=== PATIENT | male | born 1960 | race Caucasian/White ===

== ENCOUNTER 2016-08-25 18:55 | Inpatient (IN) | payer BC, MEDICARE ==
[2016-08-25 19:21] VITALS: BMI 35.6
[2016-08-25] MEDS ORDERED: SODIUM CHLORIDE 0.9% 3 ML FLUSH FLUSH PRN ×2 (19:46→22:29)
[2016-08-25] MEDS ORDERED: NS 1,000 ML IV ONE ×3 (19:46→22:29)
[2016-08-25] MEDS ORDERED: ONDANSETRON HCL 4 MG/2 ML VIAL IV ONE (19:46)
[2016-08-25] MEDS ORDERED: MORPHINE 4 MG/ML INJECTION IV ONE (19:46)
--- NOTE | 2016-08-25 19:49 | EDPRACDOC ---
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 PT STATES HAS H /O CELLULITIS, IS A DIABETIC AND HAS HAD MRSA IN THE PAST. HAS ALSO HAD MULTIPLE SURGERIES ON LEFT FOOT. Foot Problem Location: Reports: Left, Lateral, Medial Mechanism: Reports: Unknown Circumstances: Reports: Unknown Able to Bear Weight: Limited Pain Severity: Reports: Moderate Associated Signs & Symptoms: Reports: Swelling (REDNESS AND WARMTH OF LEFT FOOT) <Daquan Chaves - Last Filed: 08/25/16 22:29> - General Information Chief Complaint: Foot Pain Stated Complaint: LEFT FOOT SWELLING Time Seen by Provider: 08/25/16 19:38 Home Medications: Home Medications Diltiazem HCl [Cardizem Cd] 360 mg PO DAILY 09/25/12 Duloxetine HCl [Cymbalta] 60 mg PO DAILY 09/25/12 Ergocalciferol (Vitamin D2) [Vitamin D] 50,000 unit PO .WEEKLY ON Sunday Gabapentin [Neurontin] 800 mg PO BID 09/25/12 Hydroxychloroquine Sulfate [Plaquenil] 200 mg PO BID 09/25/12 Leflunomide [Arava] 20 mg PO DAILY 09/25/12 Montelukast Sodium [Singulair] 10 mg PO HS 09/25/12 Olopatadine HCl [Patanol 0.1% Ophthalmic Solution] 1 drop OU BID 09/25/12 Prednisone 10 mg PO DAILY 09/25/12 Zolpidem Tartrate [Ambien Cr] 12.5 mg PO HS 09/25/12 Finasteride [Proscar] 5 mg PO DAILY 01/12/14 Potassium Chloride [Klor-Con M20] 20 meq PO DAILY 01/12/14 Ranitidine HCl [Zantac] 300 mg PO DAILY 01/12/14 Tamsulosin HCl [Flomax] 0.4 mg PO BID 01/12/14 Tapentadol HCl [Nucynta ER] 250 mg PO BID 01/12/14 Bupropion HCl [Bupropion HCl Sr] 300 mg PO DAILY 12/24/14 Ezetimibe [Zetia] 10 mg PO DAILY 12/24/14 CloNIDine (Antihypertensive) [Catapres] 0.3 mg PO BID 02/06/16 Esomeprazole Mag Trihydrate [Nexium] 40 mg PO DAILY 02/06/16 Furosemide [Lasix] 40 mg PO DAILY 02/06/16 HydrALAZINE (Cardiovascular) [Apresoline] 50 mg PO TID 02/06/16 Rivaroxaban [Xarelto] 20 mg PO DAILY 02/06/16 Telmisartan [Micardis] 80 mg PO DAILY 02/06/16 Albuterol Sulfate [Proair Hfa] 2 puff INH Q4-6H PRN 03/07/16 Olopatadine HCl [Patanol] 1 drop OU BID 03/07/16 Cephalexin Monohydrate [Keflex] 500 mg PO Q8H #21 cap 03/11/16 Lactobacillus Acidophilus [Florajen] 460 mg PO BID #120 capsule 03/11/16 Moxifloxacin HCl [Avelox] 400 mg PO DAILY #7 tablet 03/11/16 Allergies/Adverse Reactions: Allergies Allergy/AdvReac Type Severity Reaction Status Date / Time Penicillins Allergy Unknown/See Verified 02/06/16 18:29 Comments ED Past Medical History - History Reviewed Yes Nurses notes reviewed and agree except as marked Travel Outside of [place] in the Last 3 Months?: No - Patient Medical History Cardiac History: Reports: Hypertension, Hypercholesterolemia Respiratory History: Reports: Asthma, COPD, Pulmonary Embolism (Currently taking Xarelto) GI/ History: Reports: Renal Disease, Gastroesophageal Reflux, Diverticulosis. Denies: Ulcer, Pancreatitis Musculoskeletal History: Reports: Gout, Rheumatoid Arthritis, Osteoarthritis Psychological History: Reports: Depression, Anxiety. Denies: Substance Use Disorder Systemic History: Reports: Anemia, Diabetes Surgical History: Reports: Cholecystectomy, Other (Right knee arthroscopic surgery.left foot x 2). Denies: Hernia Surgery, Tonsillectomy/Adnoidectomy - Family Medical History Reports: Hypertension, Diabetes, Stroke, Cardiac Disorders. Denies: Cancer - Social Medical History Smoking Status: Never smoker Social History: Denies: Substance Use Disorder ETOH: None Substance Abuse: None Lives With: Spouse Lives In: Home <Daquan Chaves - Last Filed: 08/25/16 22:29> EDM Review of Systems - Review of Systems ROS Negative Except as Marked: Yes All systems reviewed and were negative except as marked Constitutional: Fever (LOW GRADE HERE). negative: Chills, Fatigue, Loss of Appetite, Weakness Eyes: No Symptoms Reported. negative: Redness, Blurred Vision, Double Vision, Discharge, Pain, Light Sensitive, Photophobia Ears: No Symptoms Reported. negative: Pain, Hearing Loss, Drainage, Ear Pulling Throat: No Symptoms Reported. negative: Pain, Swelling Nose: No Symptoms Reported. negative: Congestion, Bleeding, Discharge, Injection, Swelling, Deformity, Ecchymosis, Tender, Abrasion, Laceration Mouth: No Symptoms Reported. negative: Pain, Drooling Respiratory: No Symptoms Reported. negative: Cough, Brassy Cough, Barky Cough, Shortness of Breath, Wheezing, Hemoptysis Cardiovascular: No Symptoms Reported. negative: Chest Pain, Palpitations, Syncope, Edema, Orthopnea, PND, Skin Mottling, Cyanosis Gastrointestinal: No Symptoms Reported. negative: Pain, Constipation, Nausea, Vomiting, Diarrhea, Melena, Formula Intolerance Genitourinary: No Symptoms Reported. negative: Dysuria, Hematuria, Frequency, Discharge, Bleeding, Testicular Pain, Neurological: No Symptoms Reported. negative: Headache, Dizziness, Seizure, Numbness, Weakness, Speech Difficulty, Gait Difficulty Musculoskeletal: No Symptoms Reported. negative: Neck, Chestwall, Ribs, Back, Shoulder, Arm, Elbow, Forearm, Wrist, Hand, Pelvis, Hip, Femur, Knee, Leg, Ankle , Foot Integumentary: Other (REDNESS SWELLING OF LEFT FOOT WITH WARMTH FOR SEVERAL DAYS.). negative: Bruising, Itching, Rash, Wound Allergic/Immunologic: No Symptoms Reported. negative: Hives, Itching Hematologic: No Symptoms Reported. negative: Lymphadenopathy, Easy Bruising, Easy Bleeding Endocrine: No Symptoms Reported. negative: Weight Gain, Weight Loss Psychiatric: No Symptoms Reported. negative: Anxiety, Depression, Hallucinations, Insomnia, Suicidal <Daquan Chaves - Last Filed: 08/25/16 22:29> - Physical Exam Last recorded Vital Signs: Last Vital Signs Temp 99.5 F 08/25/16 19:17 Pulse 88 08/25/16 21:37 Resp 22 08/25/16 21:37 BP 124/68 08/25/16 21:37 Pulse Ox 94 08/25/16 21:37 Oxygen Pulse Oxygen Saturation 94 O2 Device Room Air Oxygen Flow Rate Fraction of Inspired Oxygen ( FIO2) <Edda Mccann Joni - Last Filed: 08/25/16 22:18> - Physical Exam Constitutional: Alert (Awake), No apparent distress Oriented to: Time, Person, Place Last recorded Vital Signs: Last Vital Signs Temp 99.5 F 08/25/16 19:17 Pulse 96 08/25/16 19:42 Resp 24 08/25/16 19:42 BP 114/64 08/25/16 19:42 Pulse Ox 92 08/25/16 19:42 Oxygen Pulse Oxygen Saturation 92 O2 Device Room Air Oxygen Flow Rate Fraction of Inspired Oxygen ( FIO2) - HEENT Head: Normal ( normocephalic) Eye Exam: Normal (PERRL, EOMI, Sclera white) Oropharynx: Normal (Pharynx:Moist without exudate,Gums-no swelling) Tympanic Membrane: Normal ENT EAC: Normal TMJ: Normal Nose: No Symptoms Reported (septum midline) Neck: Normal (FROM, trachea at midline) - Respiratory/Cardiovascular Respiratory: Normal - CTA (BBS clear to auscultation without adventitious sounds ) Cardiovascular: Normal (RRR without murmur, gallop or rub) - GI Auscultation: Normal (NABS) Palpation: Normal (Soft,No rebound or guarding, non distended) Tenderness: Non tender Franco's Sign: Negative - Musculoskeletal Back: Normal (Non-Tender) Extremities: Normal (Normal tone, Pulses 2+ No cyanosis or edema, FROM) - Integumentary Skin: Normal, Warm, Dry Lymphatics: Normal (no adenopathy) - Neurologic Memory Impaired: Normal Motor Function: Normal (Normal tone, Pulses 2+ No cyanosis or edema, FROM) Cranial Nerve: Normal (CN II-X11 intact sensation, strength 5/5) Cerebellar: Normal Mood Description: Normal Perception: Normal <Daquan Chaves - Last Filed: 08/25/16 22:29> ED Foot Problem Phys Exam - Musculoskeletal Foot: Swelling (REDNESS AND WARMTH TO LEFT MEDIAL AND LATERAL FOOT, MULTIPLE SURGICAL SCARS TO FOOT, ALSO AREA OF CONCERN TO LATERAL FOOT APPEARS TO BE POCKET OF PUS.) Ankle: Swelling (REDNESS AND WARMTH) Achilles Tendon: Normal Nail: Normal Nailbed: Normal Soft Tissue: Tender, Red, Swelling, Other (WARMTH) Digit: Normal Digit Strength: Normal Distal Function/Circulation: Normal - Integumentary Skin: Swelling, Red, Warm, Erythema Lymphatics: Normal <Daquan Chaves - Last Filed: 08/25/16 22:29> - Results 08/25/16 20:07 08/25/16 20:07 WBC 12.4 xk/uL (3.8-10.8) H 08/25/16 20:07 RBC 4.57 xM/uL (4.70-6.10) L 08/25/16 20:07 Hgb 11.0 g/dL (14.0-18.0) L 08/25/16 20:07 Hct 34.4 % (42-52) L 08/25/16 20:07 MCV 75 fL (80-94) L 08/25/16 20:07 MCH 24.1 pg (27-32) L 08/25/16 20:07 MCHC 32.1 g/dl (33-36) L 08/25/16 20:07 RDW 18.0 % (11.5-14.5) H 08/25/16 20:07 Plt Count 190 xk/uL (130-400) 08/25/16 20:07 MPV 8.7 fL (7.4-10.4) 08/25/16 20:07 Neut % (Auto) 71.7 % (45-76) 08/25/16 20:07 Lymph % (Auto) 9.0 % (17-44) L 08/25/16 20:07 Bledsoe % (Auto) 17.9 % (3-10) H 08/25/16 20:07 Eos % (Auto) 0.4 % (0-5) 08/25/16 20:07 Baso % (Auto) 1.0 % (0-2) 08/25/16 20:07 Absolute Neuts (auto) 8.80 xk/uL (1.7-8.2) H 08/25/16 20:07 Absolute Lymphs (auto) 1.12 xk/uL (0.65-4.75) 08/25/16 20:07 PT 12.6 SEC (9.2-11.2) H 08/25/16 20:07 INR 1.2 08/25/16 20:07 APTT 29.4 SEC (22-35) 08/25/16 20:07 Sodium 132 mEq/L (137-146) L 08/25/16 20:07 Potassium 4.0 mEq/L (3.5-5.1) 08/25/16 20:07 Chloride 96 mEq/L (98-107) L 08/25/16 20:07 Carbon Dioxide 22 mMOL/L (22-33) 08/25/16 20:07 Anion Gap 18 mEq/L (8-16) H 08/25/16 20:07 BUN 19 MG/DL (9-20) 08/25/16 20:07 Creatinine 2.30 MG/DL (0.66-1.25) H 08/25/16 20:07 Estimated GFR (MDRD) 30 mL/min (>=60) L 08/25/16 20:07 Glucose 86 MG/DL (70-99) 08/25/16 20:07 Calculated Osmolality 256 MOs/Kg (270-290) L 08/25/16 20:07 Calcium 9.1 MG/DL (8.4-10.2) 08/25/16 20:07 Corrected Calcium 9.2 MG/DL (8.4-10.2) 08/25/16 20:07 Total Bilirubin 1.0 MG/DL (0.2-1.3) 08/25/16 20:07 AST 60 IU/L (17-59) H 08/25/16 20:07 ALT 79 IU/L (21-72) H 08/25/16 20:07 Alkaline Phosphatase 99 IU/L (38-126) 08/25/16 20:07 Troponin I 0.04 ng/mL (<.04) 08/25/16 20:07 Total Protein 7.3 G/DL (6.3-8.2) 08/25/16 20:07 Albumin 3.9 G/DL (3.5-5.0) 08/25/16 20:07 Lab Results 08/25/16 08/25/16 08/25/16 20:07 20:07 20:07 WBC 12.4 H RBC 4.57 L Hgb 11.0 L Hct 34.4 L MCV 75 L MCH 24.1 L MCHC 32.1 L RDW 18.0 H Plt Count 190 MPV 8.7 Neut % (Auto) 71.7 Lymph % (Auto) 9.0 L Bledsoe % (Auto) 17.9 H Eos % (Auto) 0.4 Baso % (Auto) 1.0 Absolute Neuts (auto) 8.80 H Absolute Lymphs (auto) 1.12 PT 12.6 H INR 1.2 APTT 29.4 Sodium 132 L Potassium 4.0 Chloride 96 L Carbon Dioxide 22 Anion Gap 18 H BUN 19 Creatinine 2.30 H Estimated GFR (MDRD) 30 L Glucose 86 Calculated Osmolality 256 L Calcium 9.1 Corrected Calcium 9.2 Total Bilirubin 1.0 AST 60 H ALT 79 H Alkaline Phosphatase 99 Troponin I 0.04 Total Protein 7.3 Albumin 3.9 - Additional Information NO HARDWARE REMAINING. ONE ABSCESS DRAINED IN ED. PT NONTOXIC CURRENTLY, BUT IS IMMUNOCOMPROMISED WITH DMARD AND PRED. <Edda Mccann - Last Filed: 08/25/16 22:18> - Differential Diagnosis Contusion, Metatarsal Fracture, Other (CELLULITIS, OSTEOMYELITIS) - Results 08/25/16 20:07 08/25/16 20:07 <Daquan Chaves - Last Filed: 08/25/16 22:29> - Departure Yes I personally saw and evaluated the patient. Disposition: Admit IP To This Hospital Decision to Admit Time: 22:19 Decision to admit date: 08/25/16 Decision to admit: from ED - Physician Consulted Hospitalist Time Called: 22:19 Provider Called: Agnes Benites Time Retort Engineer Returned Call: 22:19 Orthopedics Time Called: 22:00 Provider Called: Sami Harding Time Retort Engineer Returned Call: 22:00 (NO ID OR NEPHROLOGY AT [facility], REC TRANSFER. FOOT SURG HANDLED BY [facility], CALL THEM) Surgery Time Called: 22:10 Provider Called: Red Schaefer Time Retort Engineer Returned Call: 22:10 (SINCE NO REMAINING HARDWARE, HE CAN DO DEBRIDEMENT IF NECESSARY) <Edda Mccann - Last Filed: 08/25/16 22:18> - Departure Education/Counseling Given To: Patient Education/Counseling Given Regarding: Diagnosis, Treatment, Prognosis, Follow Up <Daquan Chaves - Last Filed: 08/25/16 22:29> - Departure Final Diagnosis: Cellulitis of left foot, Acute renal insufficiency Instructions: RICE: Routine Care for Injuries Referrals: Arlet Cardoso MD [Primary Care Provider] - As Needed
[2016-08-25] MEDS ORDERED: Pharmacy Review for Metformin - IV Contrast Given SCH (20:00)
--- NOTE | 2016-08-25 20:01 | DIRPT ---
CLINICAL DATA: History of hypertension, foot cellulitis EXAM: PORTABLE CHEST 1 VIEW COMPARISON: 03/07/2016 FINDINGS: Stable mild cardiac enlargement. Vascular pattern normal. Minimal atelectasis right lower lobe. IMPRESSION: No significant acute findings Electronically Signed By: Martin Saldivar M.D. On: 08/25/2016 19:59
[2016-08-25 20:17] LABS: AUTOMATED EOSINOPHIL 0.4 % (0-5); AUTOMATED MONOCYTE 17.9 % (3-10); AUTOMATED NEUTROPHIL 71.7 % (45-76); MPV 8.7 fL (7.4-10.4)
[2016-08-25 20:29] LABS: BLOOD UREA NITROGEN 19 MG/DL (9-20); CALC CORRECTED 9.2 MG/DL (8.4-10.2); CALCIUM 9.1 MG/DL (8.4-10.2); CALCULATED OSMOLALITY 256 MOs/Kg (270-290); CHLORIDE 96 mEq/L (98-107); GLUCOSE 86 MG/DL (70-99); SODIUM LEVEL 132 mEq/L (137-146); TOTAL PROTEIN 7.3 G/DL (6.3-8.2)
[2016-08-25 20:30] LABS: PARTIAL THROMB. TIME 29.4 SEC (22-35); PT-INR 1.2
[2016-08-25] MEDS ORDERED: LIDOCAINE 2% 5 ML (PRESERVATIVE FREE) VIAL INF ONE (20:56)
--- NOTE | 2016-08-25 21:54 | DIRPT ---
CLINICAL DATA: Redness swelling warmth to left foot for 4 days with fever and elevated white blood count, history of multiple left foot surgeries EXAM: CT OF THE LOWER LEFT EXTREMITY WITHOUT CONTRAST TECHNIQUE: Multidetector CT imaging of the left lower extremity from ankle through forefoot was performed according to the standard protocol. COMPARISON: 02/06/2016 FINDINGS: Significant skin thickening circumferentially around the ankle and along the dorsal surface of the hindfoot, midfoot, and extending to a lesser degree into the forefoot. Multiple leg instrumentation through the calcaneus, navicular, cuboid, cuneiforms, and metatarsal. There is apparent fusion of the talonavicular joint. There is corticated chronic appearing erosive change between the navicular and the cuneiform bones. Articulation between the first cuneiform and first metatarsal appears to be fused. There is no periosteal reaction or cortical destruction to specifically indicate osteomyelitis. An acute fracture is not visible. Adjacent to the base of the fifth metatarsal, just proximal to the bulb, there is a 17 mm fluid collection center containing at least 2 loculations with thin enhancement of the rim and internal septation. There is a small ankle joint effusion of unknown sterility. IMPRESSION: Findings suggest diffuse cellulitis with small soft tissue abscess as described. Small ankle joint effusion of unknown sterility Electronically Signed By: Martin Saldivar M.D. On: 08/25/2016 21:51
[2016-08-25 22:27] LABS: LEUKOCYTES/URINE NEG (NEGATIVE); NITRITE/URINE NEG (NEGATIVE); URINE OCCULT BLOOD NEG (NEG/TRACE)
[2016-08-25] MEDS ORDERED: BENZONATATE 100 MG PERLES PO PRN (22:29)
[2016-08-25] MEDS ORDERED: TEMAZEPAM 15 MG CAP PO PRN (22:29)
[2016-08-25] MEDS ORDERED: ACETAMINOPHEN 650 MG SUPP PR PRN (22:29)
[2016-08-25] MEDS ORDERED: ACETAMINOPHEN 325 MG/TAB TABLET PO PRN (22:29)
[2016-08-25] MEDS ORDERED: SIMETHICONE 80 MG TAB PO PRN (22:29)
[2016-08-25] MEDS ORDERED: ONDANSETRON HCL 4 MG/2 ML VIAL IV PRN (22:29)
[2016-08-25] MEDS ORDERED: METOCLOPRAMIDE 10 MG/2 ML VIAL IV PRN (22:29)
[2016-08-25] MEDS ORDERED: DOCUSATE-SENNA CONCENTRATE TAB PO PRN (22:29)
[2016-08-25] MEDS ORDERED: OLOPATADINE HCL OU SCH (22:45)
--- NOTE | 2016-08-25 22:48 | HISTPHYS ---
- Chief Complaint infected wound on foot - History of Present Illness Mr. Clarence Cardoso is a 55 year old man with a history of rheumatoid arthritis, diabetes and hypertensive heart disease who states that about 3-4 days ago his left foot began swelling and turning red. He has had reconstructive surgery in this foot in the past, but all the metal hardware has already been removed. He did have an abscess but that was drained in the ED. There does not appear to be any underlying osteomyelitis at this time. The patient has either progressive renal failure from his diabetes or acute renal failure from his acute illness, because his creatinine has risen from his former baseline of 1.0 to 2.3. His BUN remains normal. We will admit the patient for treatment of his acute renal failure and his cellulitis. - Medical History Cardiac History: Reports: Hypertension, Congestive Heart Failure, Hypercholesterolemia Respiratory History: Reports: Asthma, COPD, Pulmonary Embolism (Currently taking Xarelto) GI/ History: Reports: Renal Disease, Gastroesophageal Reflux, Diverticulosis. Denies: Ulcer, Pancreatitis Musculoskeletal History: Reports: Gout, Rheumatoid Arthritis, Osteoarthritis Systemic History: Reports: Anemia, Diabetes Neurological History: Reports: Other (neuropathy) Psychological History: Reports: Depression, Anxiety. Denies: Substance Use Disorder - Surgical History Reports: Cholecystectomy, Other (Right knee arthroscopic surgery, left foot reconstructive surg x 2). Denies: Hernia Surgery, Tonsillectomy/Adnoidectomy - Medictions/Allergies Allergies Penicillins Allergy (Verified 02/06/16 18:29) Unknown/See Comments was told to avoid Home Medications Diltiazem HCl [Cardizem Cd] 360 mg PO DAILY 09/25/12 Duloxetine HCl [Cymbalta] 60 mg PO DAILY 09/25/12 Ergocalciferol (Vitamin D2) [Vitamin D] 50,000 unit PO .WEEKLY ON Sunday Gabapentin [Neurontin] 800 mg PO BID 09/25/12 Hydroxychloroquine Sulfate [Plaquenil] 200 mg PO BID 09/25/12 Leflunomide [Arava] 20 mg PO DAILY 09/25/12 Montelukast Sodium [Singulair] 10 mg PO HS 09/25/12 Olopatadine HCl [Patanol 0.1% Ophthalmic Solution] 1 drop OU BID 09/25/12 Prednisone 10 mg PO DAILY 09/25/12 Zolpidem Tartrate [Ambien Cr] 12.5 mg PO HS 09/25/12 Finasteride [Proscar] 5 mg PO DAILY 01/12/14 Potassium Chloride [Klor-Con M20] 20 meq PO DAILY 01/12/14 Ranitidine HCl [Zantac] 300 mg PO DAILY 01/12/14 Tamsulosin HCl [Flomax] 0.4 mg PO BID 01/12/14 Tapentadol HCl [Nucynta ER] 250 mg PO BID 01/12/14 Bupropion HCl [Bupropion HCl Sr] 300 mg PO DAILY 12/24/14 Ezetimibe [Zetia] 10 mg PO DAILY 12/24/14 CloNIDine (Antihypertensive) [Catapres] 0.3 mg PO BID 02/06/16 Esomeprazole Mag Trihydrate [Nexium] 40 mg PO DAILY 02/06/16 Furosemide [Lasix] 40 mg PO DAILY 02/06/16 HydrALAZINE (Cardiovascular) [Apresoline] 50 mg PO TID 02/06/16 Rivaroxaban [Xarelto] 20 mg PO DAILY 02/06/16 Telmisartan [Micardis] 80 mg PO DAILY 02/06/16 Albuterol Sulfate [Proair Hfa] 2 puff INH Q4-6H PRN 03/07/16 Olopatadine HCl [Patanol] 1 drop OU BID 03/07/16 Cephalexin Monohydrate [Keflex] 500 mg PO Q8H #21 cap 03/11/16 Lactobacillus Acidophilus [Florajen] 460 mg PO BID #120 capsule 03/11/16 Moxifloxacin HCl [Avelox] 400 mg PO DAILY #7 tablet 03/11/16 - Family History Reports: Hypertension, Diabetes, Stroke, Cardiac Disorders. Denies: Cancer - Social History Travel Outside of [place] in the Last 3 Months?: No Lives: with Spouse Smoking Status: Never smoker Social History: Denies: Alcohol Use, Substance Use Disorder - Review of Systems Constitutional: Chills, Weakness. negative: Fever Eyes: No Symptoms Reported Ears: No Symptoms Reported Nose: No Symptoms Reported Mouth: No Symptoms Reported, Dry Mouth Throat/Neck: No Symptoms Reported Respiratory: No Symptoms Reported. negative: Cough, Shortness of Breath, Wheezing Cardiovascular: Edema, Palpitations. negative: Chest Pain, Cyanosis Gastrointestinal: Nausea, Constipation, Heartburn, Appetite Changes Genitourinary: Frequency, Nocturia. negative: Dysuria, Discharge, Testicular Pain, Flank Pain Neurological: Dizziness, Headache, Weakness, Memory Changes Musculoskeletal:: Arthritis, Gout, Weakness, Joint Pain, Joint Swelling Integumentary: Rash Allergic/Immunologic: No Symptoms Reported Hematologic: Easy Bruising, Anemia Endocrine: Weight Gain, Polyuria, Diabetes Psychiatric: No Symptoms Reported - Physical Exam Vital Signs: Initial Vitals Temperature 99.5 F 08/25/16 19:17 Pulse Rate 97 08/25/16 19:17 Respiratory Rate 20 08/25/16 19:17 Blood Pressure 111/62 08/25/16 19: Pulse Oxygen Saturation 93 08/25/16 19:17 Constitutional: Alert, Somnolent Oriented to: Person, Place - HEENT Head: Normal Eye: Normal (PERRL: EOMI) Oropharynx: Normal, Membranes Dry, Red. negative: Exudate Tympanic Membrane: Normal ENT EAC: Normal TMJ: Normal Nose: No Symptoms Reported. negative: Bleeding, Congestion, Discharge, Deformity Respiratory: Tachypnea (clear to auscultation) Cardiovascular: Tachycardia, Systolic murmur (3/6 through-out pre-cordium), Gallop/S3 - GI Auscultation: Normal Palpation: Normal (obese, soft, nontender, nondistended, no palpable mass) Tenderness: Non tender Franco's Sign: Negative Rectal Exam: Deferred - Musculoskeletal Back: Normal Extremities: Other (L foot with slight deformity, old surgical scarring, redness and edema both medial and lateral aspect of foot and ankle, had abscess over lateral 5th metatarsal head- drained in ED) Spine: non-tender, normal alignment, normal inspection - Integumentary Skin: Warm, Dry, Rash (left foot red and edematous) Lymphatics: Normal - Neurologic Memory Impaired: Normal Motor Function: Normal Cranial Nerve: Normal Cerebellar: Normal Mood Description: Appropriate Thought: Coherent Perception: Normal - Focused CV Perfusion Exam Date exam occurred: 08/25/16 Time of Exam: 21:30 Vital Signs: Last Vital Signs Temp 99.5 F 08/25/16 19:17 Pulse 88 08/25/16 21:37 Resp 22 08/25/16 21:37 BP 124/68 08/25/16 21:37 Pulse Ox 94 08/25/16 21:37 Respiratory: Chest non-tender, Lungs clear, Normal breath sounds Cardiovascular/Chest: Tachycardia, Systolic murmur, Gallop/S3 Capillary Refill: Immediate Peripheral pulses: Diminished: Posterior tibialis (R), Posterior tibialis (L), Full: Radial (R), Radial (L), Dorsalis pedis (R), Bounding: Dorsalis pedis (L) Skin Color: Flushed (face flushed), Erythema (left foot & ankle) Skin Turgor: <3 Seconds - Lab Results Laboratory Tests 08/25/16 08/25/16 08/25/16 20:07 20:07 20:07 WBC 12.4 H Hgb 11.0 L Hct 34.4 L Plt Count 190 Neut % (Auto) 71.7 Lymph % (Auto) 9.0 L [place] % (Auto) 17.9 H Eos % (Auto) 0.4 PT 12.6 H INR 1.2 APTT 29.4 Sodium 132 L Potassium 4.0 Chloride 96 L Carbon Dioxide 22 Anion Gap 18 H BUN 19 Creatinine 2.30 H Estimated GFR (MDRD) 30 L Glucose 86 Hemoglobin A1c Calculated Osmolality 256 L Lactic Acid Calcium 9.1 Corrected Calcium 9.2 Total Bilirubin 1.0 AST 60 H ALT 79 H Alkaline Phosphatase 99 Troponin I 0.04 Total Protein 7.3 Albumin 3.9 Urine Color Urine Clarity Urine pH Ur Specific [place] Urine Protein Urine Glucose (UA) Urine Ketones Urine Nitrite Urine RBC Urine WBC Urine Bacteria 08/25/16 08/25/16 08/25/16 20:07 22:04 22:15 WBC Hgb Hct Plt Count Neut % (Auto) Lymph % (Auto) [place] % (Auto) Eos % (Auto) PT INR APTT Sodium Potassium Chloride Carbon Dioxide Anion Gap BUN Creatinine Estimated GFR (MDRD) Glucose Hemoglobin A1c 4.9 Calculated Osmolality Lactic Acid 1.6 Calcium Corrected Calcium Total Bilirubin AST ALT Alkaline Phosphatase Troponin I Total Protein Albumin Urine Color Dark yellow Urine Clarity Sl cldy Urine pH 5.0 Ur Specific [place] 1.015 Urine Protein 2+ H Urine Glucose (UA) Neg Urine Ketones Neg Urine Nitrite Neg Urine RBC 5-10 H Urine WBC 2-5 H Urine Bacteria Few 08/25/16 23:15 WBC Hgb Hct Plt Count Neut % (Auto) Lymph % (Auto) [place] % (Auto) Eos % (Auto) PT INR APTT Sodium Potassium Chloride Carbon Dioxide Anion Gap BUN Creatinine Estimated GFR (MDRD) Glucose Hemoglobin A1c Calculated Osmolality Lactic Acid Calcium Corrected Calcium Total Bilirubin AST ALT Alkaline Phosphatase Troponin I 0.03 Total Protein Albumin Urine Color Urine Clarity Urine pH Ur Specific [place] Urine Protein Urine Glucose (UA) Urine Ketones Urine Nitrite Urine RBC Urine WBC Urine Bacteria - Diagnostic Findings CXR: FINDINGS: Stable mild cardiac enlargement. Vascular pattern normal. Minimal atelectasis right lower lobe. IMPRESSION: No significant acute findings Electronically Signed By: Martin Saldivar M.D. On: 08/25/2016 19:59 CT L FOOT: IMPRESSION: Findings suggest diffuse cellulitis with small soft tissue abscess as described. Small ankle joint effusion of unknown sterility Electronically Signed By: Martin Saldivar M.D. On: 08/25/2016 21:51 Electronically Signed By: Martin Saldivar MD Electronically Signed Date/Time: Dictate Date/Time: 08/25/16 2141 - Assessment (1) Sepsis A41.9 - SEPSIS, UNSPECIFIED ORGANISM Acute Present on Admission: Yes Qualifiers: Sepsis type: sepsis due to unspecified organism Qualified Code(s): A41.9 - Sepsis, unspecified organism ADMIT: patient meets criteria for sepsis by tachypnea and leukocytosis, also has both renal failure and liver failure with associated acute infection ( cellulitis). Obtain blood cultures and begin IV fluid resuscitation and IV antibiotics. The patient has renal failure, received one dose of IV vancomycin in ED; will switch to linezolid due to renal toxicity of vancomycin until patient is better hydrated. (2) Cellulitis of left foot L03.116 - CELLULITIS OF LEFT LOWER LIMB Acute Present on Admission: Yes As above, obtain blood culture, wound culture, and begin IV linezolid. Follow cultures. Will hold Plaquenil and Arava while he has an acute infection, although OK to continue prednisone. (3) Acute kidney injury N17.9 - ACUTE KIDNEY FAILURE, UNSPECIFIED Acute Present on Admission: Yes Patient will receive 4 L of IV fluids in the first 6 hours on sepsis protocol, and continue with IV fluid hydration after that. Monitor renal function closely , avoid nephrotoxic medications. Stopped vancomycin for this reason. 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 Hold oral diabetes medication for now. (5) Delirium R41.0 - DISORIENTATION, UNSPECIFIED Acute Present on Admission: Yes Patient is mildly delirious, likely due to his sepsis. Will re-orient him as needed, monitor closely, assist with ambulation, place on fall-precautions. (6) Rheumatoid arthritis M06.9 - RHEUMATOID ARTHRITIS, UNSPECIFIED Chronic Present on Admission: Yes Qualifiers: Rheumatoid arthritis location: multiple sites Rheumatoid factor presence: unspecified presence Qualified Code(s): M06.9 - Rheumatoid arthritis, unspecified Continue home meds (7) Elevated transaminase level R74.0 - NONSPEC ELEV OF LEVELS OF TRANSAMNS & LACTIC ACID DEHYDRGNSE Acute Present on Admission: Yes Hydrate and monitor intermittently. This may be chronic, due to his steatohepatitis. Monitor CMP, avoid any hepatotoxins (8) Hypertension I10 - ESSENTIAL (PRIMARY) HYPERTENSION Chronic Present on Admission: Yes Qualifiers: Hypertension type: essential hypertension Qualified Code(s): I10 - Essential (primary) hypertension Stable on home medications. (9) Steatohepatitis K75.81 - NONALCOHOLIC STEATOHEPATITIS (VICENTE) Chronic Present on Admission: Yes Noted. - Plan Due to the presence of and/or the risk of deterioration, my attendance to this patient required critical care time, including assessment/reassessment, documentation, ordering and interpreting ancillary studies, discussion with staff and consultants,patient and family, and excludes time spent on separately billable procedures. In summary, this patient is acutely and critically ill. The patient requires treatment of vital organ failure and measures to prevent further life-threatening deterioration of condition. Case Care Discussed with: Patient Total Time: 65 min Critical Care: Yes Couseling Time (>50% in counseling/coordination): Yes Code: 291
[2016-08-25] MEDS ORDERED: Vaccine Screening Complete SCH (23:00)
[2016-08-25] MEDS ORDERED: KETOTIFEN FUMARATE 100 DROPS/5 ML BOTTLE OU SCH (23:00)
[2016-08-25] MEDS ORDERED: GLUCAGON 1 MG VIAL SQ PRN (23:25)
[2016-08-25] MEDS ORDERED: GLUCOSE (ORAL GEL) 15 GM TUBE PO PRN (23:25)
[2016-08-25] MEDS ORDERED: DEXTROSE 25 GM/50 ML PFS IV PRN (23:25)
[2016-08-25] MEDS ORDERED: ZOLPIDEM TARTRATE 12.5 MG PO SCH (23:30)
[2016-08-25] MEDS: Linezolid 600 mg/300 ml Premix 600 MG/300 ML RTU IV SCH (23:43)
[2016-08-26] MEDS ORDERED: ZOLPIDEM TARTRATE 5 MG TAB PO ONE
[2016-08-26] MEDS: NS 1,000 ML IV SCH ×4 (00:41→22:08)
[2016-08-26] MEDS ORDERED: ENOXAPARIN 60 MG/0.6 ML PFS SQ SCH (01:00)
[2016-08-26] MEDS ORDERED: ALBUTEROL 6.7 GM MDI INH PRN (01:11)
[2016-08-26 02:24] LABS: AUTOMATED BASOPHIL 1.4 % (0-2); AUTOMATED EOSINOPHIL 2.2 % (0-5); AUTOMATED LYMPH 14.8 % (17-44); AUTOMATED MONOCYTE 17.8 % (3-10); AUTOMATED NEUTROPHIL 63.8 % (45-76); MPV 8.9 fL (7.4-10.4)
[2016-08-26 02:40] LABS: CALCIUM 8.1 MG/DL (8.4-10.2); CREATININE 1.6 MG/DL (0.66-1.25); TOTAL PROTEIN 6.1 G/DL (6.3-8.2)
[2016-08-26] MEDS: OXYCODONE HCL 5 MG TABLET PO PRN ×2 (03:40→20:28)
[2016-08-26] MEDS: OXYCODONE (OxyCONTIN) 20 MG TAB PO SCH ×3 (05:59→22:07)
[2016-08-26] MEDS: PANTOPRAZOLE 40 MG TAB PO SCH (06:00)
[2016-08-26] MEDS ORDERED: SODIUM CHLORIDE 0.9% 3 ML FLUSH FLUSH SCH (06:00)
[2016-08-26] MEDS: SODIUM CHLORIDE 0.9% 3 ML FLUSH FLUSH SCH ×2 (06:00→17:30)
[2016-08-26] MEDS: REGULAR INSULIN 100 UNITS/ML - 3 ML VIAL SQ SCH ×4 (06:00→22:08)
[2016-08-26] MEDS ORDERED: Non-Formulary Medication ITEM (Rivaroxaban [Xarelto] 20 MG) PO SCH (09:00)
[2016-08-26] MEDS ORDERED: BuPROPion 150 MG XL TAB PO SCH (09:00)
[2016-08-26] MEDS ORDERED: RANITIDINE HCL 300 MG PO SCH (09:00)
[2016-08-26] MEDS ORDERED: LACTOBACILLUS ACIDOPHILUS 460 MG PO SCH (09:00)
[2016-08-26] MEDS ORDERED: BuPROPion 150 MG SR TAB PO SCH (09:00)
[2016-08-26] MEDS ORDERED: Non-Formulary Medication ITEM (Esomeprazole Mag Trihydrate [Nexium] 40 MG) PO SCH (09:00)
[2016-08-26] MEDS ORDERED: DULOXETINE 60 MG CAPSULE PO SCH (09:00)
[2016-08-26] MEDS ORDERED: OLOPATADINE HCL OU SCH (09:00)
[2016-08-26] MEDS ORDERED: TELMISARTAN 80 MG PO SCH (09:00)
[2016-08-26] MEDS: TAMSULOSIN HCL 0.4 MG CAP PO SCH ×2 (10:39→22:07)
[2016-08-26] MEDS: PREDNISONE 5 MG TAB PO SCH (10:39)
[2016-08-26] MEDS: POTASSIUM CHLORIDE 20 MEQ TAB PO SCH (10:40)
[2016-08-26] MEDS: HYDROCHLOROTHIAZIDE 12.5 MG CAP PO SCH (10:40)
[2016-08-26] MEDS: GABAPENTIN 800 MG TAB PO SCH ×2 (10:40→22:08)
[2016-08-26] MEDS: TELMISARTAN 40 MG TAB PO SCH (10:41)
[2016-08-26] MEDS: RIVAROXABAN 10 MG TAB PO SCH (10:42)
[2016-08-26] MEDS: FINASTERIDE 5 MG TAB PO SCH (10:42)
[2016-08-26] MEDS: KETOTIFEN FUMARATE 100 DROPS/5 ML BOTTLE OU SCH ×2 (10:42→22:10)
[2016-08-26] MEDS: PROBIOTIC BLEND TAB PO SCH ×2 (10:43→17:30)
[2016-08-26] MEDS: EZETIMIBE 10 MG TAB PO SCH (10:43)
[2016-08-26] MEDS: RANITIDINE 150 MG TAB PO SCH (10:43)
[2016-08-26] MEDS: Linezolid 600 mg/300 ml Premix 600 MG/300 ML RTU IV SCH ×2 (10:44→23:29)
--- NOTE | 2016-08-26 13:59 | HISTPHYS ---
- Chief Complaint swelling of left foot - History of Present Illness This is a 55 year old male with a history of multiple orthopedic surgeries of the left foot. He came to the emergency department due to swelling of the left foot and redness. He reports mild pain in the left foot at this time. - Medical History Cardiac History: Reports: Hypertension, Congestive Heart Failure, Hypercholesterolemia Respiratory History: Reports: Asthma, COPD, Pulmonary Embolism (Currently taking Xarelto) GI/ History: Reports: Renal Disease, Gastroesophageal Reflux, Diverticulosis. Denies: Ulcer, Pancreatitis Musculoskeletal History: Reports: Gout, Rheumatoid Arthritis, Osteoarthritis Systemic History: Reports: Anemia, Diabetes Neurological History: Reports: Other (neuropathy) Psychological History: Reports: Depression, Anxiety. Denies: Alcoholism, Substance Use Disorder - Surgical History Reports: Cholecystectomy, Other (Right knee arthroscopic surgery, left foot reconstructive surg x 2). Denies: Hernia Surgery, Tonsillectomy/Adnoidectomy - Medictions/Allergies Allergies Penicillins Allergy (Verified 02/06/16 18:29) Unknown/See Comments was told to avoid Current Medication List: Reviewed Home Medications Diltiazem HCl [Cardizem Cd] 360 mg PO DAILY 09/25/12 Duloxetine HCl [Cymbalta] 60 mg PO DAILY 09/25/12 Ergocalciferol (Vitamin D2) [Vitamin D] 50,000 unit PO .WEEKLY ON Sunday Gabapentin [Neurontin] 800 mg PO BID 09/25/12 Hydroxychloroquine Sulfate [Plaquenil] 200 mg PO BID 09/25/12 Leflunomide [Arava] 20 mg PO DAILY 09/25/12 Montelukast Sodium [Singulair] 10 mg PO HS 09/25/12 Olopatadine HCl [Patanol 0.1% Ophthalmic Solution] 1 drop OU BID 09/25/12 Prednisone 7.5 mg PO DAILY 09/25/12 Zolpidem Tartrate [Ambien Cr] 12.5 mg PO HS 09/25/12 Finasteride [Proscar] 5 mg PO DAILY 01/12/14 Potassium Chloride [Klor-Con M20] 20 meq PO DAILY 01/12/14 Ranitidine HCl [Zantac] 300 mg PO DAILY 01/12/14 Tamsulosin HCl [Flomax] 0.4 mg PO BID 01/12/14 Tapentadol HCl [Nucynta ER] 250 mg PO BID 01/12/14 Bupropion HCl [Bupropion HCl Sr] 300 mg PO DAILY 12/24/14 Ezetimibe [Zetia] 10 mg PO DAILY 12/24/14 CloNIDine (Antihypertensive) [Catapres] 0.3 mg PO BID 02/06/16 Esomeprazole Mag Trihydrate [Nexium] 40 mg PO DAILY 02/06/16 HydrALAZINE (Cardiovascular) [Apresoline] 50 mg PO TID 02/06/16 Rivaroxaban [Xarelto] 20 mg PO DAILY 02/06/16 Telmisartan [Micardis] 80 mg PO DAILY 02/06/16 Albuterol Sulfate [Proair Hfa] 2 puff INH Q4-6H PRN 03/07/16 Olopatadine HCl [Patanol] 1 drop OU BID 03/07/16 Hydrochlorothiazide 12.5 mg PO DAILY 08/26/16 - Family History Reports: Hypertension, Diabetes, Stroke, Cardiac Disorders. Denies: Cancer - Social History Travel Outside of [place] in the Last 3 Months?: No Lives: with Spouse Smoking Status: Never smoker Social History: Denies: Alcohol Use, Substance Use Disorder - Review of Systems Yes All systems reviewed and were negative except as marked (twelve systems reviewed with the patient.) - Physical Exam Vital Signs: Initial Vitals Temperature 99.5 F 08/25/16 19:17 Pulse Rate 97 08/25/16 19:17 Respiratory Rate 20 08/25/16 19:17 Blood Pressure 111/62 08/25/16 19:17 Pulse Oxygen Saturation 93 08/25/16 19:17 Constitutional: No apparent distress, Alert Oriented to: Time, Person, Place - HEENT Head: Normal Eye: Normal Oropharynx: Normal ENT EAC: Normal Nose: No Symptoms Reported Respiratory: Normal - CTA Cardiovascular: Normal - GI Auscultation: Normal Palpation: Normal Tenderness: Non tender Rectal Exam: Deferred - Musculoskeletal Extremities: Pedal Edema (+2/4 dorsalis pedis pulse. equal bilaterally.), Other (LEFT FOOT: There +2 non pitting edema of the foot. No edema of the ankle. There is no erythema of the foot at this time. There is a 8 mm opening at the lateral aspect of the foot with scant bloody drainage. No purulent drainage. No fluctuant masses noted. No surrounding erythema. Mildly tender.) - Integumentary Skin: Warm, Dry Lymphatics: Normal - Lab Results 08/26/16 02:16 08/26/16 02:16 - Diagnostic Findings Final Report CLINICAL DATA: Redness swelling warmth to left foot for 4 days with fever and elevated white blood count, history of multiple left foot surgeries EXAM: CT OF THE LOWER LEFT EXTREMITY WITHOUT CONTRAST TECHNIQUE: Multidetector CT imaging of the left lower extremity from ankle through forefoot was performed according to the standard protocol. COMPARISON: 02/06/2016 FINDINGS: Significant skin thickening circumferentially around the ankle and along the dorsal surface of the hindfoot, midfoot, and extending to a lesser degree into the forefoot. Multiple leg instrumentation through the calcaneus, navicular, cuboid, cuneiforms, and metatarsal. There is apparent fusion of the talonavicular joint. There is corticated chronic appearing erosive change between the navicular and the cuneiform bones. Articulation between the first cuneiform and first metatarsal appears to be fused. There is no periosteal reaction or cortical destruction to specifically indicate osteomyelitis. An acute fracture is not visible. Adjacent to the base of the fifth metatarsal, just proximal to the bulb, there is a 17 mm fluid collection center containing at least 2 loculations with thin enhancement of the rim and internal septation. There is a small ankle joint effusion of unknown sterility. IMPRESSION: Findings suggest diffuse cellulitis with small soft tissue abscess as described. Small ankle joint effusion of unknown sterility Electronically Signed By: Martin Saldivar M.D. On: 08/25/2016 21:51 - Assessment/Plan (1) Cellulitis of left foot L03.116 - CELLULITIS OF LEFT LOWER LIMB Acute Present on Admission: Yes Comment: The patient appears to have cellulitis of the left foot. Antibiotics per hospitalist service. The abscess described on CT scan appears to have drained. No indication for surgical intervention at this time. We will plan for local wound care and close monitoring. If swelling and pain does not resolve, consideration could be given to follow up with orthopedic surgeon as an outpatient regarding ankle effusion of unknown chronicity. I discussed the treatment plan with the patient. All questions were answered. Case Care Discussed with: Patient, Consultants (Dr. Hudson)
--- NOTE | 2016-08-26 14:27 | GENMEDPROG ---
Subjective Note: Patient in bed responsive follows commands. Still fair amount of pain in the left foot. Denies and difficulties breathing cough or phlegm production. Notes Reviewed: Yes Events from last night noted and discussed with Clinical Staff Current Medication List: Reviewed Currently: Reports: MCMULLEN, Sputum, Reflux Sx DVT Prophylaxis: Yes - Physical Examination Vital Signs and I&O: Last Vital Signs Temp 97.9 F 08/26/16 09:40 Pulse 82 08/26/16 09:40 Resp 18 08/26/16 09:40 BP 116/70 08/26/16 09:40 Pulse Ox 94 08/26/16 09:40 Oxygen Pulse Oxygen Saturation 94 O2 Device Room Air Oxygen Flow Rate Fraction of Inspired Oxygen ( FIO2) Intake & Output 08/23/16 08/24/16 08/25/16 08/26/16 23:59 23:59 23:59 23:59 Intake Total 1700 2617 Output Total 2675 Balance 1700 -58 Patient's weight 126.008 kg General: Alert, Oriented x3, Cooperative, No acute distress HEENT: Normal, PERRLA, EOMI, Anicteric Sclera Neck: Non-tender, Limited range of motion Lymphatics: Normal Respiratory: Normal - CTA, Diminished, Rhonchi Cardiovascular: Regular rate, Normal S1, Normal S2, Murmurs GI: Normal bowel sounds, Soft, Non tender, No hepatospenomegaly, No masses, Obese Extremities/Musculoskeletal: Edema Skin: Warm,Dry and Intact, No rashes, No breakdown, No significant lesion Neurological: Normal speech, Cranial nerves 3-12 NL Psych/Mental Status: Anxious Lab/DI/Studies Reviewed: Last Vital Signs Temp 97.9 F 08/26/16 09:40 Pulse 82 08/26/16 09:40 Resp 18 08/26/16 09:40 BP 116/70 08/26/16 09:40 Pulse Ox 94 08/26/16 09:40 08/26/16 02:16 08/26/16 02:16 Abnormal Lab Results 08/25/16 08/25/16 08/25/16 20:07 20:07 20:07 WBC 12.4 H RBC 4.57 L Hgb 11.0 L Hct 34.4 L MCV 75 L MCH 24.1 L MCHC 32.1 L RDW 18.0 H Lymph % (Auto) 9.0 L [place] % (Auto) 17.9 H Absolute Neuts (auto) 8.80 H PT 12.6 H Sodium 132 L Chloride 96 L Anion Gap 18 H Creatinine 2.30 H Estimated GFR (MDRD) 30 L POC Capillary Glucose Calculated Osmolality 256 L Calcium AST 60 H ALT 79 H Total Protein Albumin Urine Protein Urine RBC Urine WBC Hyaline Casts Urine Mucus 08/25/16 08/26/16 08/26/16 22:15 02:16 02:16 WBC RBC 4.10 L Hgb 10.2 L Hct 30.9 L MCV 76 L MCH 24.8 L MCHC 32.9 L RDW 18.3 H Lymph % (Auto) 14.8 L [place] % (Auto) 17.8 H Absolute Neuts (auto) PT Sodium 132 L Chloride Anion Gap Creatinine 1.60 H Estimated GFR (MDRD) 45 L POC Capillary Glucose Calculated Osmolality 256 L Calcium 8.1 L AST ALT Total Protein 6.1 L Albumin 3.1 L Urine Protein 2+ H Urine RBC 5-10 H Urine WBC 2-5 H Hyaline Casts 10-20 H Urine Mucus Mod H 08/26/16 08/26/16 05:05 11:16 WBC RBC Hgb Hct MCV MCH MCHC RDW Lymph % (Auto) [place] % (Auto) Absolute Neuts (auto) PT Sodium Chloride Anion Gap Creatinine Estimated GFR (MDRD) POC Capillary Glucose 104 H 117 H Calculated Osmolality Calcium AST ALT Total Protein Albumin Urine Protein Urine RBC Urine WBC Hyaline Casts Urine Mucus - Assessment (1) Cellulitis of left foot Acute L03.116 - CELLULITIS OF LEFT LOWER LIMB Comment/Plan: Continue IV antibiotics and local care. Surgery to see. (2) Acute kidney injury Acute N17.9 - ACUTE KIDNEY FAILURE, UNSPECIFIED Comment/Plan: Monitor renal function avoid any nephrotoxins (3) Iron deficiency anemia Acute D50.9 - IRON DEFICIENCY ANEMIA, UNSPECIFIED Comment/Plan: Monitor counts (4) Rheumatoid arthritis Chronic M06.9 - RHEUMATOID ARTHRITIS, UNSPECIFIED Qualifiers: Rheumatoid arthritis location: multiple sites Rheumatoid factor presence: unspecified presence Qualified Code(s): M06.9 - Rheumatoid arthritis, unspecified Comment/Plan: Continue home meds (5) Gastroesophageal reflux disease Chronic K21.9 - GASTRO-ESOPHAGEAL REFLUX DISEASE WITHOUT ESOPHAGITIS Qualifiers: Esophagitis presence: without esophagitis Qualified Code(s): K21.9 - Gastro -esophageal reflux disease without esophagitis Comment/Plan: Continue PPI (6) Hypertension Chronic I10 - ESSENTIAL (PRIMARY) HYPERTENSION Qualifiers: Hypertension type: essential hypertension Qualified Code(s): I10 - Essential (primary) hypertension Comment/Plan: Stable on home medications. 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 Critical Care: No Code: 65004 (12+)
[2016-08-26] MEDS: ZOLPIDEM TARTRATE 5 MG TAB PO SCH (22:07)
[2016-08-26] MEDS: MONTELUKAST SODIUM 10 MG TAB PO SCH (22:08)
[2016-08-27] MEDS: OXYCODONE (OxyCONTIN) 20 MG TAB PO SCH ×3 (06:07→21:00)
[2016-08-27] MEDS: PANTOPRAZOLE 40 MG TAB PO SCH (06:07)
[2016-08-27] MEDS: SODIUM CHLORIDE 0.9% 3 ML FLUSH FLUSH SCH ×2 (06:08→17:41)
[2016-08-27] MEDS: REGULAR INSULIN 100 UNITS/ML - 3 ML VIAL SQ SCH ×4 (06:09→22:13)
[2016-08-27] MEDS: NS 1,000 ML IV SCH ×2 (08:14→23:27)
[2016-08-27] MEDS: PREDNISONE 5 MG TAB PO SCH (08:15)
[2016-08-27] MEDS: POTASSIUM CHLORIDE 20 MEQ TAB PO SCH (08:16)
[2016-08-27] MEDS: HYDROCHLOROTHIAZIDE 12.5 MG CAP PO SCH (08:16)
[2016-08-27] MEDS: TAMSULOSIN HCL 0.4 MG CAP PO SCH ×2 (08:16→21:00)
[2016-08-27] MEDS: GABAPENTIN 800 MG TAB PO SCH ×2 (08:17→21:01)
[2016-08-27] MEDS: TELMISARTAN 40 MG TAB PO SCH (08:17)
[2016-08-27] MEDS: RIVAROXABAN 10 MG TAB PO SCH (08:18)
[2016-08-27] MEDS: FINASTERIDE 5 MG TAB PO SCH (08:18)
[2016-08-27] MEDS: KETOTIFEN FUMARATE 100 DROPS/5 ML BOTTLE OU SCH ×2 (08:19→21:01)
[2016-08-27] MEDS: EZETIMIBE 10 MG TAB PO SCH (08:19)
[2016-08-27] MEDS: PROBIOTIC BLEND TAB PO SCH ×2 (08:20→18:01)
[2016-08-27] MEDS: RANITIDINE 150 MG TAB PO SCH (08:21)
--- NOTE | 2016-08-27 12:47 | GENMEDPROG ---
Chief Complaint: Left foot swelling and cellulitis Subjective Note: Doing well, patient feels that has improved quite a bit. No more drainage from the left lateral area that drained previously. Notes Reviewed: Yes Events from last night noted and discussed with Clinical Staff Current Medication List: Reviewed Currently: Reports: MCMULLEN, Sputum, Reflux Sx DVT Prophylaxis: Yes - Physical Examination Vital Signs and I&O: Last Vital Signs Temp 98.9 F 08/27/16 05:35 Pulse 83 08/27/16 05:35 Resp 20 08/27/16 05:35 BP 154/84 08/27/16 05:35 Pulse Ox 95 08/27/16 05:35 Oxygen Pulse Oxygen Saturation 95 O2 Device Room Air Oxygen Flow Rate Fraction of Inspired Oxygen ( FIO2) Intake & Output 08/25/16 08/26/16 08/27/16 08/28/16 06:59 06:59 06:59 06:59 Intake Total 1700 6555 836 Output Total 1325 4700 400 Balance 375 1855 436 Patient's weight 126.008 kg 125.6 kg General: Alert, Oriented x3, Cooperative, No acute distress HEENT: Normal, PERRLA, EOMI, Anicteric Sclera Neck: Non-tender, Limited range of motion Lymphatics: Normal Respiratory: Normal - CTA, Diminished, Rhonchi Cardiovascular: Regular rate, Normal S1, Normal S2, Murmurs GI: Normal bowel sounds, Soft, Non tender, No hepatospenomegaly, No masses, Obese Extremities/Musculoskeletal: Edema Skin: Warm,Dry and Intact, No rashes, No breakdown, No significant lesion Neurological: Normal speech, Cranial nerves 3-12 NL Psych/Mental Status: Anxious Left lower extremity with obvious signs of prior surgical repair and deformity. There is very very minimal amount of erythema surrounding the left foot. Small punctate area of open wound where looks like there may have been some prior drainage. No current warmth or ping erythema, or edema. No areas of fluctuance or active drainage. Lab/DI/Studies Reviewed: Laboratory Tests 08/25/16 08/26/16 08/26/16 20:07 02:16 02:16 WBC 9.9 Hgb 10.2 L BUN 17 Creatinine 2.30 H 1.60 H - Assessment (1) Acute kidney injury Acute N17.9 - ACUTE KIDNEY FAILURE, UNSPECIFIED Comment/Plan: Received aggressive IV hydration, vancomycin was discontinued due to this acute kidney injury. He received fluids initially per sepsis protocol, and renal function is now improving. Monitor renal function closely, continue to avoid nephro toxic agents. (2) Cellulitis of left foot Acute L03.116 - CELLULITIS OF LEFT LOWER LIMB Comment/Plan: Continue IV antibiotics and local care. Surgery has seen and does not feel that any further drainage is necessary at this time. The abscess seen on CT scan is likely completely drained, they feel. Blood and wound cultures, which are currently preliminarily growing gram-negative rods. Will continue IV lines as this time and follow up on cultures. Blood cultures are negative so far. 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 Hold oral diabetes medication for now. (4) History of pulmonary embolus (PE) Acute Z86.711 - PERSONAL HISTORY OF PULMONARY EMBOLISM (5) Gastroesophageal reflux disease Chronic K21.9 - GASTRO-ESOPHAGEAL REFLUX DISEASE WITHOUT ESOPHAGITIS Qualifiers: Esophagitis presence: without esophagitis Qualified Code(s): K21.9 - Gastro -esophageal reflux disease without esophagitis Comment/Plan: Continue PPI (6) Hypertension Chronic I10 - ESSENTIAL (PRIMARY) HYPERTENSION Qualifiers: Hypertension type: essential hypertension Qualified Code(s): I10 - Essential (primary) hypertension Comment/Plan: Stable on home medications. (7) Rheumatoid arthritis Chronic M06.9 - RHEUMATOID ARTHRITIS, UNSPECIFIED Qualifiers: Rheumatoid arthritis location: multiple sites Rheumatoid factor presence: unspecified presence Qualified Code(s): M06.9 - Rheumatoid arthritis, unspecified Comment/Plan: Home Plaquenil and arrival are being held while the patient has active infection.
[2016-08-27] MEDS ORDERED: MUPIROCIN 2% OINT 22 GM TUBE TOP SCH (13:00)
[2016-08-27] MEDS: Linezolid 600 mg/300 ml Premix 600 MG/300 ML RTU IV SCH ×2 (15:00→23:27)
[2016-08-27] MEDS: MUPIROCIN 2% OINT 22 GM TUBE TOP SCH (15:01)
[2016-08-27] MEDS: ZOLPIDEM TARTRATE 5 MG TAB PO SCH (21:00)
[2016-08-27] MEDS: MONTELUKAST SODIUM 10 MG TAB PO SCH (21:01)
[2016-08-28] MEDS: OXYCODONE (OxyCONTIN) 20 MG TAB PO SCH ×2 (05:31→14:00)
[2016-08-28] MEDS: SODIUM CHLORIDE 0.9% 3 ML FLUSH FLUSH SCH ×2 (05:31→16:59)
[2016-08-28] MEDS: PANTOPRAZOLE 40 MG TAB PO SCH (05:31)
[2016-08-28] MEDS: REGULAR INSULIN 100 UNITS/ML - 3 ML VIAL SQ SCH ×4 (05:31→20:51)
[2016-08-28 07:34] LABS: MPV 8.8 fL (7.4-10.4)
[2016-08-28 07:39] LABS: BLOOD UREA NITROGEN 8 MG/DL (9-20); CALCIUM 8.8 MG/DL (8.4-10.2); CALCULATED OSMOLALITY 268 MOs/Kg (270-290); CHLORIDE 105 mEq/L (98-107); GLUCOSE 85 MG/DL (70-99); SODIUM LEVEL 141 mEq/L (137-146)
[2016-08-28] MEDS: PREDNISONE 5 MG TAB PO SCH (08:48)
[2016-08-28] MEDS: HYDROCHLOROTHIAZIDE 12.5 MG CAP PO SCH (08:49)
[2016-08-28] MEDS: TAMSULOSIN HCL 0.4 MG CAP PO SCH ×2 (08:49→20:50)
[2016-08-28] MEDS: POTASSIUM CHLORIDE 20 MEQ TAB PO SCH (08:49)
[2016-08-28] MEDS: GABAPENTIN 800 MG TAB PO SCH ×2 (08:49→20:51)
[2016-08-28] MEDS: TELMISARTAN 40 MG TAB PO SCH (08:49)
[2016-08-28] MEDS: RIVAROXABAN 10 MG TAB PO SCH (08:50)
[2016-08-28] MEDS: EZETIMIBE 10 MG TAB PO SCH (08:50)
[2016-08-28] MEDS: RANITIDINE 150 MG TAB PO SCH (08:50)
[2016-08-28] MEDS: FINASTERIDE 5 MG TAB PO SCH (08:50)
[2016-08-28] MEDS: KETOTIFEN FUMARATE 100 DROPS/5 ML BOTTLE OU SCH ×3 (08:51→20:52)
[2016-08-28] MEDS: MUPIROCIN 2% OINT 22 GM TUBE TOP SCH (08:56)
[2016-08-28] MEDS: NS 1,000 ML IV SCH ×2 (09:41→15:26)
[2016-08-28] MEDS: PROBIOTIC BLEND TAB PO SCH ×2 (11:51→17:26)
--- NOTE | 2016-08-28 12:53 | GENMEDPROG ---
Chief Complaint: Left foot infection Subjective Note: Doing well, no acute events overnight. He has multidrug resistant Pseudomonas growing out from his wound culture from his left foot abscess. Notes Reviewed: Yes Events from last night noted and discussed with Clinical Staff Current Medication List: Reviewed Currently: Reports: MCMULLEN, Sputum, Reflux Sx DVT Prophylaxis: Yes - Physical Examination Vital Signs and I&O: Last Vital Signs Temp 98.3 F 08/28/16 05:40 Pulse 80 08/28/16 08:46 Resp 20 08/28/16 05:40 BP 168/89 08/28/16 08:46 Pulse Ox 95 08/28/16 05:40 Oxygen Pulse Oxygen Saturation 95 O2 Device Room Air Oxygen Flow Rate Fraction of Inspired Oxygen ( FIO2) Intake & Output 08/26/16 08/27/16 08/28/16 08/29/16 06:59 06:59 06:59 06:59 Intake Total 1700 6555 3479 0 Output Total 1325 4700 3250 875 Balance 375 1165 229 875 Patient's weight 126.008 kg 125.6 kg General: Alert, Oriented x3, Cooperative, No acute distress HEENT: Normal, PERRLA, EOMI, Anicteric Sclera Neck: Non-tender, Limited range of motion Lymphatics: Normal Respiratory: Normal - CTA, Diminished, Rhonchi Cardiovascular: Regular rate, Normal S1, Normal S2, Murmurs GI: Normal bowel sounds, Soft, Non tender, No hepatospenomegaly, No masses, Obese Extremities/Musculoskeletal: Edema Skin: Warm,Dry and Intact, No rashes, No breakdown, No significant lesion Neurological: Normal speech, Cranial nerves 3-12 NL Psych/Mental Status: Anxious Lab/DI/Studies Reviewed: Laboratory Tests 08/28/16 08/28/16 06:35 06:35 WBC 5.2 Hgb 10.1 L Hct 31.4 L Potassium 3.5 BUN 8 L Creatinine 0.80 - Assessment (1) Acute kidney injury Acute N17.9 - ACUTE KIDNEY FAILURE, UNSPECIFIED Comment/Plan: Received aggressive IV hydration, vancomycin was discontinued due to this acute kidney injury. He received fluids initially per sepsis protocol, and renal function is now improving. Monitor renal function closely, continue to avoid nephro toxic agents. (2) Cellulitis of left foot Acute L03.116 - CELLULITIS OF LEFT LOWER LIMB Comment/Plan: Continue IV antibiotics and local care. Surgery has seen and does not feel that any further drainage is necessary at this time. The abscess seen on CT scan is likely completely drained, they feel. Wound culture from his foot is now growing resistant Pseudomonas. I have placed the patient on imipenem currently. He will get a PICC line today, and he will need to be discharged home on a course of IV antibiotics via PICC line for this resistant Pseudomonas infection. Thankfully on the CT scan, there is no evidence of osteomyelitis or deeper infection. 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 Hold oral diabetes medication for now. (4) History of pulmonary embolus (PE) Acute Z86.711 - PERSONAL HISTORY OF PULMONARY EMBOLISM (5) Gastroesophageal reflux disease Chronic K21.9 - GASTRO-ESOPHAGEAL REFLUX DISEASE WITHOUT ESOPHAGITIS Qualifiers: Esophagitis presence: without esophagitis Qualified Code(s): K21.9 - Gastro -esophageal reflux disease without esophagitis Comment/Plan: Continue PPI (6) Hypertension Chronic I10 - ESSENTIAL (PRIMARY) HYPERTENSION Qualifiers: Hypertension type: essential hypertension Qualified Code(s): I10 - Essential (primary) hypertension Comment/Plan: Stable on home medications. (7) Rheumatoid arthritis Chronic M06.9 - RHEUMATOID ARTHRITIS, UNSPECIFIED Qualifiers: Rheumatoid arthritis location: multiple sites Rheumatoid factor presence: unspecified presence Qualified Code(s): M06.9 - Rheumatoid arthritis, unspecified Comment/Plan: Home Plaquenil and arrival are being held while the patient has active infection.
[2016-08-28] MEDS: IMIPENEM CILASTATIN 500 MG in D5W 100 ML IV SCH ×2 (13:03→20:49)
[2016-08-28] MEDS ORDERED: LIDOCAINE 1% 30 ML VIAL (PRESERVATIVE FREE) ONE (13:52)
--- NOTE | 2016-08-28 15:13 | DIRPT ---
CLINICAL DATA: Pseudomonas pneumonia EXAM: POWER PICC LINE PLACEMENT WITH ULTRASOUND AND FLUOROSCOPIC GUIDANCE FLUOROSCOPY TIME: 6 sec PROCEDURE: The patient was advised of the possible risks andcomplications and agreed to undergo the procedure. The patient was then brought to the angiographic suite for the procedure. The left arm was prepped with chlorhexidine, drapedin the usual sterile fashion using maximum barrier technique (cap and mask, sterile gown, sterile gloves, large sterile sheet, hand hygiene and cutaneous antisepsis) and infiltrated locally with 1% Lidocaine. Ultrasound demonstrated patency of the left basilic vein, and this was documented with an image. Under real-time ultrasound guidance, this vein was accessed with a 21 gauge micropuncture needle and image documentation was performed. A 0.018 wire was introduced in to the vein. Over this, a 5 Romansh single lumen power PICC was advanced to the lower SVC/right atrial junction. Fluoroscopy during the procedure and fluoro spot radiograph confirms appropriate catheter position. The catheter was flushed and covered with asterile dressing. Catheter length: 45 Complications: None IMPRESSION: Successful left arm power PICC line placement with ultrasound and fluoroscopic guidance. The catheter is ready for use. Electronically Signed By: Junior Wynne M.D. On: 08/28/2016 15:11
[2016-08-28] MEDS: ZOLPIDEM TARTRATE 5 MG TAB PO SCH (20:49)
[2016-08-28] MEDS: MONTELUKAST SODIUM 10 MG TAB PO SCH (20:51)
[2016-08-28] MEDS: TAPENTADOL HCL 50 MG TAB PO SCH (22:03)
[2016-08-29] MEDS: NS 1,000 ML IV SCH ×2 (00:42→08:42)
[2016-08-29] MEDS: IMIPENEM CILASTATIN 500 MG in D5W 100 ML IV SCH (02:58)
[2016-08-29] MEDS: PANTOPRAZOLE 40 MG TAB PO SCH (05:46)
[2016-08-29] MEDS: SODIUM CHLORIDE 0.9% 3 ML FLUSH FLUSH SCH ×2 (05:49→18:03)
[2016-08-29] MEDS: REGULAR INSULIN 100 UNITS/ML - 3 ML VIAL SQ SCH ×3 (05:51→16:50)
[2016-08-29 07:17] LABS: MPV 8.2 fL (7.4-10.4)
[2016-08-29 07:49] LABS: BLOOD UREA NITROGEN 7 MG/DL (9-20); CALCIUM 8.7 MG/DL (8.4-10.2); CALCULATED OSMOLALITY 266 MOs/Kg (270-290); CHLORIDE 105 mEq/L (98-107); GLUCOSE 87 MG/DL (70-99); SODIUM LEVEL 140 mEq/L (137-146)
[2016-08-29] MEDS: POTASSIUM CHLORIDE 20 MEQ TAB PO SCH (08:26)
[2016-08-29] MEDS: GABAPENTIN 800 MG TAB PO SCH (08:26)
[2016-08-29] MEDS: HYDROCHLOROTHIAZIDE 12.5 MG CAP PO SCH (08:26)
[2016-08-29] MEDS: TELMISARTAN 40 MG TAB PO SCH (08:26)
[2016-08-29] MEDS: TAMSULOSIN HCL 0.4 MG CAP PO SCH (08:26)
[2016-08-29] MEDS: PREDNISONE 5 MG TAB PO SCH (08:27)
[2016-08-29] MEDS: EZETIMIBE 10 MG TAB PO SCH (08:27)
[2016-08-29] MEDS: KETOTIFEN FUMARATE 100 DROPS/5 ML BOTTLE OU SCH (08:27)
[2016-08-29] MEDS: RIVAROXABAN 10 MG TAB PO SCH (08:27)
[2016-08-29] MEDS: FINASTERIDE 5 MG TAB PO SCH (08:27)
[2016-08-29] MEDS: RANITIDINE 150 MG TAB PO SCH (08:27)
[2016-08-29] MEDS: TAPENTADOL HCL 50 MG TAB PO SCH (08:37)
[2016-08-29] MEDS: PROBIOTIC BLEND TAB PO SCH ×2 (08:40→18:03)
[2016-08-29] MEDS: MUPIROCIN 2% OINT 22 GM TUBE TOP SCH (08:41)
[2016-08-29] MEDS: CEFEPIME HYDROCHLORIDE 2 GM in D5W 100 ML IV SCH ×2 (11:57→18:03)
--- NOTE | 2016-08-29 13:18 | PCM.DCS92 ---
- Final/Secondary Discharge Diagnosis (1) Acute kidney injury Acute N17.9 - ACUTE KIDNEY FAILURE, UNSPECIFIED Present on Admission: Yes Comment: Received aggressive IV hydration, vancomycin was discontinued due to this acute kidney injury. He received fluids initially per sepsis protocol, and renal function is now back to normal. Monitor renal function closely, continue to avoid nephro toxic agents. (2) Cellulitis of left foot Acute L03.116 - CELLULITIS OF LEFT LOWER LIMB Present on Admission: Yes Comment: Continue IV antibiotics and local care. Surgery has seen and does not feel that any further drainage is necessary at this time. The abscess seen on CT scan is likely completely drained, they feel. Wound culture from his foot is now growing resistant Pseudomonas. I have placed the patient on imipenem currently. He will get a PICC line today, and he will need to be discharged home on a course of IV antibiotics via PICC line for his resistant Pseudomonas infection. Note that CT scan done at the time of admission ruled out any deeper infection such as septic arthritis or osteomyelitis. 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 Hold oral diabetes medication for now. (4) History of pulmonary embolus (PE) Acute Z86.711 - PERSONAL HISTORY OF PULMONARY EMBOLISM (5) Gastroesophageal reflux disease Chronic K21.9 - GASTRO-ESOPHAGEAL REFLUX DISEASE WITHOUT ESOPHAGITIS without esophagitis K21.9 - Gastro-esophageal reflux disease without esophagitis Comment: Continue PPI (6) Hypertension Chronic I10 - ESSENTIAL (PRIMARY) HYPERTENSION Present on Admission: Yes essential hypertension I10 - Essential (primary) hypertension Comment: Stable on home medications. (7) Rheumatoid arthritis Chronic M06.9 - RHEUMATOID ARTHRITIS, UNSPECIFIED Present on Admission: Yes multiple sites unspecified presence M06.9 - Rheumatoid arthritis, unspecified Comment: Home Plaquenil and arrival are being held while the patient has active infection. Discharge Disposition: Discharge w/ Home Health (For home IV antibiotics) Discharge Condition: Good Cognitive Discharge Status: Unimpaired Fuctional Discharge Status: Independent Physician Follow up/Referrals: Arlet Wynn MD [Primary Care Provider] - As Needed New Prescriptions: Cefepime HCl 2 gm IV Q12H 12 Days Mupirocin [Bactroban] 1 gm TOP DAILY #1 tube Probiotic Blend [Rowan Q] 1 tab PO BIDLS #20 tablet O2 Device: Room Air Diet at Discharge: Regular Activity: No Restrictions - DC Summary Notes HPI/Notes: This is a pleasant 55-year-old male with a history of multiple left lower extremity infections and surgeries was admitted with left lower extremity cellulitis and abscess. CT showed abscess in the emergency department, this was drained at the bedside. Was seen by General surgery, but it was felt that no other surgical drainage or other surgery was indicated. Patient was treated empirically with IV antibiotics, found to have resistant Pseudomonas infection. Antibiotics were changed to IV cefepime, he will be discharged home today after receiving PICC line to complete a total 14 day course of IV antibiotics for his multidrug resistant Pseudomonas. Please see the hospital problems and discharge problems above for details of the hospital course including diagnostics and treatment. The plan of care including medications, prognosis, follow-up including alarm symptoms for which medical care should be sought were reviewed with the patient and any available family members/caretakers. The patient is agreeable to discharge today, and all questions were answered by me to their satisfaction. Hospital Course Note:: Discharge summary on patient named YAIR WYNN admitted to [facility] on 08/25/16 by Agnes Benites MD. Date of discharge is []. Total Time: 45 - Physical Exam Vital Signs: Last Vital Signs Temp 98.3 F 08/29/16 06:00 Pulse 76 08/29/16 06:00 Resp 18 08/29/16 06:00 BP 157/87 08/29/16 06:53 Pulse Ox 94 08/29/16 06:00 Oxygen Pulse Oxygen Saturation 94 O2 Device Room Air Oxygen Flow Rate Fraction of Inspired Oxygen ( FIO2) Constitutional: No apparent distress, Alert Oriented to: Time, Person, Place - HEENT Head: Normal Eye: Normal Oropharynx: Normal ENT EAC: Normal Nose: No Symptoms Reported - Respiratory/Cardiovascular Respiratory: Normal - CTA, Diminished, Rhonchi - GI Auscultation: Normal Palpation: Normal Tenderness: Non tender Rectal Exam: Deferred - Musculoskeletal Extremities: Pedal Edema (+2/4 dorsalis pedis pulse. equal bilaterally.), Other (LEFT FOOT: There +2 non pitting edema of the foot. No edema of the ankle. There is no erythema of the foot at this time. There is a 8 mm opening at the lateral aspect of the foot with scant bloody drainage. No purulent drainage. No fluctuant masses noted. No surrounding erythema. Mildly tender.) - Integumentary Lymphatics: Normal - Neurologic Memory Impaired: Normal Cerebellar: Normal Mood Description: Appropriate Thought: Coherent Perception: Normal
[2016-08-29 13:57] VITALS: BP 153/81; PULSE 85; TEMP 97.6
[2016-09-01] MEDS ORDERED: ERGOCALCIFEROL (VITAMIN D2) 50000 UNITS CAP PO SCH (09:00)
== END 2016-08-29 19:13 | disposition home health service (06) | DRG 683 ==
LOC: EDMC 18:55 → MPS3 22:29
PROVIDERS: ADMIT Family Medicine; ATTEND Internal Medicine
PROC: 05HC33Z Insertion of Infusion Device into Left Basilic Vein, Percutaneous Approach (ICD-10-PCS; principal; 2016-08-28)
PROC: B51NZZA Fluoroscopy of Left Upper Extremity Veins, Guidance (ICD-10-PCS; 2016-08-28)
DX: N17.9 Acute kidney failure, unspecified (principal); L03.116 Cellulitis of left lower limb; I10 Essential (primary) hypertension; L03.115 Cellulitis of right lower limb; J44.1 Chronic obstructive pulmonary disease with (acute) exacerbation; E11.9 Type 2 diabetes mellitus without complications; B96.5 Pseudomonas (aeruginosa) (mallei) (pseudomallei) as the cause of diseases classified elsewhere; K21.9 Gastro-esophageal reflux disease without esophagitis; Z86.711 Personal history of pulmonary embolism; M06.9 Rheumatoid arthritis, unspecified; Z16.30 Resistance to unspecified antimicrobial drugs; Z79.01 Long term (current) use of anticoagulants; J45.909 Unspecified asthma, uncomplicated; G62.9 Polyneuropathy, unspecified; Z79.52 Long term (current) use of systemic steroids
CPT/HCPCS: 10060; 36415; 36569; 71010; 76937; 77001; 80048; 80053; 81001; 82043; 82962; 83036; 83605; 84484; 85025; 85027; 85610; 85730; 87040; 87070; 87075; 87077; 87186; 93005; 96365; 96366; 96372; 96375; 99284; J0692; J0743; J1642; J1650; J2001; J2020; J2270; J2405; J3370; J3490; J7060